=== PATIENT | female | born 1965 | race Caucasian/White ===

== ENCOUNTER 2020-03-18 07:26 | Day surgery (SDC) | payer BC ==
[~2020-03-18] VITALS: Ht 167.6 cm; Wt 67.0 kg
[2020-03-18] VITALS (17 sets, daily range): BP systolic 102–148; BP diastolic 57–94
[~2020-03-18 07:26] MED LIST: ASPI-1265 PO; DOCU100C40 PO; LISI-222 PO
[2020-03-18] MEDS ORDERED: ESTR1TAB19 PO (07:56)
[2020-03-18] MEDS ORDERED: THYR60TA2 PO (07:56)
[2020-03-18] MEDS ORDERED: SOTA80TA46 PO (07:56)
[2020-03-18] MEDS ORDERED: PROG100I2 VG (07:56)
[2020-03-18] MEDS ORDERED: ESOM20CA PO (07:56)
[2020-03-18] MEDS ORDERED: LACT1CAP75 PO (07:56)
[2020-03-18] MEDS ORDERED: MIDAZolam 1mg/ml 10ml vial IV ONE (08:00)
[2020-03-18] MEDS ORDERED: morphine 10mg/ml inj. IV ONE (08:00)
[2020-03-18 08:23] LABS: BASOPHILS % (AUTO) 0.6 % (0-1); EOSINOPHILS # (AUTO) 0.1 X10'3 (0-0.9); HEMATOCRIT 42.3 % (35.0-45.0); HEMOGLOBIN 14.2 g/dl (12.0-16.0); LYMPHOCYTES # (AUTO) 1.9 X10'3 (1.1-4.8); MEAN CORPUSCULAR HGB CONC 33.5 g/dL (33.0-36.5); MEAN CORPUSCULAR VOLUME 92.4 FL (78-98); MEAN PLATELET VOLUME 8.3 FL (7.4-10.4); MONOCYTES # (AUTO) 0.4 X10'3 (0-0.9); NEUTROPHILS # (AUTO) 3.7 X10'3 (1.8-7.7); NEUTROPHILS % (AUTO) 60.4 % (42-75); PLATELET COUNT 260 X10'3 (140-440); RED BLOOD COUNT 4.58 X10'6 (4.20-5.60); RED CELL DISTRIBUTION WIDTH 12.6 % (11.5-14.5); WHITE BLOOD COUNT 6.1 X10'3 (4.5-11.0)
[2020-03-18 08:36] LABS: ALBUMIN 4.1 G/DL (3.4-5.0); ANION GAP 8 (8-16); BLOOD UREA NITROGEN 20 MG/DL (7-18); BUN/CREATININE RATIO 25.3 (6.6-38.0); CALCIUM 8.9 MG/DL (8.5-10.1); CHLORIDE 104 MMOL/L (99-107); CREATININE 0.79 MG/DL (0.40-0.90); GLUCOSE 79 MG/DL (70-104); POTASSIUM 3.9 MMOL/L (3.5-5.1); SODIUM 141 MMOL/L (135-145); TOTAL CARBON DIOXIDE 28.6 MMOL/L (24-32); eGFR 76 ML/MIN
== END 2020-03-18 10:38 | disposition home or self-care (01) ==
LOC: SSTAY O 07:26
PROVIDERS: ATTEND Internal Medicine Cardiovascular Disease
DX: I08.1 Rheumatic disorders of both mitral and tricuspid valves (principal)
CPT/HCPCS: 36415; 80048; 85025; 93312; J2250; J2270